=== PATIENT | male | born 1995 | race Caucasian/White ===

== ENCOUNTER 2025-07-29 15:27 | Emergency (ER) | payer OTHER, BC, SELFPAY ==
[2025-07-29] VITALS (11 sets, daily range): BP systolic 113–158; BP diastolic 69–95; PULSE 70–98; RESP 16–18; TEMP 36.6; O2SAT 94–100; BMI 34.0
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
[2025-07-29] MEDS: LIDOCAINE 5% TRANSDERMAL PATCH 1 EACH TD (16:14)
[2025-07-29] MEDS: ACETAMINOPHEN 500MG TAB 1000 MG PO (16:14)
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
--- NOTE | 2025-07-29 16:41 | PC.NURSE ---
syncopal episode after IV placement, MD notified, fluids ordered
[2025-07-29] MEDS: LACTATED RINGERS 1000ML 1,000 ML 999 ML IV (16:48)
[2025-07-29] MEDS: SODIUM CHLORIDE 0.9% 10ML SYR (RAD ONLY) 10 ML IV (16:55)
[2025-07-29] MEDS: 0.9 % SODIUM CHLORIDE 50 ML VIAL IV (16:55)
[2025-07-29] MEDS: IOPAMIDOL-370 (76%);100ML BOTTLE 80 ML IV (16:55)
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
== END 2025-07-29 18:58 | disposition home or self-care (01) ==
PROVIDERS: Emergency Provider Emergency Medicine; PCP Family Medicine
DX: G44.309 Post-traumatic headache, unspecified, not intractable (principal); M54.2 Cervicalgia; R11.0 Nausea; V49.50XA Passenger injured in collision with unspecified motor vehicles in traffic accident, initial encounter
CPT/HCPCS: 70450; 70496; 70498; 72125; 96360; 99285; J7120; Q9967